=== PATIENT | female | born 1945 | race Caucasian/White ===

== ENCOUNTER 2019-02-13 19:10 | Emergency (ER) | payer MEDICARE, OTHER ==
[~2019-02-13] VITALS: Ht 165.1 cm; Wt 79.4 kg
[~2019-02-13 19:10] MED LIST: CEPHALEXIN500 MG PO; CITALOPRAM HBR40 MG PO; LEVOTHYROXINE125 MCG PO; PRAVASTATIN SOD10 MG PO; PREVACID15 MG PO
== END 2019-02-13 21:49 | disposition home or self-care (01) ==
LOC: ED 19:10
DX: S16.1XXA Strain of muscle, fascia and tendon at neck level, initial encounter (principal); S70.01XA Contusion of right hip, initial encounter; S50.311A Abrasion of right elbow, initial encounter; S80.211A Abrasion, right knee, initial encounter; E03.9 Hypothyroidism, unspecified; E78.00 Pure hypercholesterolemia, unspecified; F41.9 Anxiety disorder, unspecified; Z79.899 Other long term (current) drug therapy; Z23 Encounter for immunization; W01.0XXA Fall on same level from slipping, tripping and stumbling without subsequent striking against object, initial encounter
CPT/HCPCS: 73502; 90471; 90715; 99283-25

== ENCOUNTER 2020-05-28 06:55 | Day surgery (SDC) | payer MEDICARE, OTHER ==
[~2020-05-28] VITALS: Ht 165.1 cm; Wt 77.6 kg
--- NOTE | 2020-05-28 10:29 | NUR ---
05/28/20 1029 Meghana Gibbons 0927- PT TO PACU IN SUPINE POSITION. EYES CLOSED AND UNRESPONSIVE TO TACTILE OR VERBAL STIMULI. ORAL AIRWAY IN PLACE. CHIN THRUST REQUIRED TO PROMOTE EASE OF VENTILLATION. SPO2 >95% ON 6 L O2 VIA SIMPLE MASK. REPORT RECEIVED FROM JONELLE. 0937- PT CONTINUES TO REQUIRE CHIN THRUST TO PROMOTE EVEN AND EASY VENTILATIONS WITH ORAL AIRWAY IN PLACE. SPO2 >95% ON 6 L O2 VIA SIMPLE MASK. 0942- PT OPENS EYES TO VOICE AND TACTILE STIMULI. PROMPTING REQUIRED TO FOLLOW COMMANDS. ORAL AIRWAY REMOVED. BREATHING EASY AND UNLABORED SPOP2 >95% ON 6 L O2 VIA SIMPLE MASK. 0950- PT REQUESTING WATER. SIPS OF WATER PROVIDED. SPO2 >95%. O2 TITRATED DOWN TO ROOM AIR. 0952- SPO2 88-90%. O2 PROVIDED W/ ETCO2 MONITOR AT 2 LPM. SPO2 >90%. PT REPORTING NAUSEA. PRN MEDS AVAILABLE. 1000- PT COMPLAINING OF 6/10 PAIN. DESCRIBES THEM 'HUNGER PAINS' PT AGAIN REQUESTING WATER. PT EDUCATED ABOUT PO AND POST OPERATIVE NAUSEA. BREATHING EASY AND UNLABORED. SPO2 >90% ON 2 L O2 VIA NC. ETCO2 45. 1010- PT AGAIN REQUESTING WATER AND REPORTING RIGHT SHOULDER PAIN. WITH PROMPTING, PT ABLE TO MOVE BOTH EXTREMITIES. NEURO CHECK COMPLETED AND WNL. PT REMAINS VERY DROWSY AND REQUIRING FREQUENT REORINTATION. VSS. 1019- DS RN AT BEDSIDE TALKING WITH PT. PT REMAINS DROWSY AND COMPLAINS OF ABDOMINAL PAIN, 6/10. PT CLOSES EYES SHORTLY THERAFTER. VSS. 2 L O2 VIA NC RUNNING. 1028- PT SLEEPING COMFORTABLY. RR 10 ETCO2 48. WILL CONTINUE TO MONITOR PT IN PACU.
--- NOTE | 2020-05-28 11:11 | NUR ---
REPORTS DECREASING PAIN IN RIGHT SHOULDER (LIKELY FROM CO2 INSFLUATION) AND DECREASING ABDOMINAL PAIN. ICE TO INCISIONS PER ORDER. REPORTS NAUSEA IS RESOLVED. PROVIDED WITH CRACKERS AND SIPS OF WATER.
--- NOTE | 2020-05-28 12:09 | NUR ---
PT RESTING IN BED AND VSS. PT WAKES EASILY AND REPORT PAIN IS "MUCH BETTER" /10. PT SIPPING WATER AND EATING CRACKERS WITH NO CONCERNS. PT RESTING IN BED WITH EYES CLOSED AND CALLED LIGHT WITHIN REACH.
--- NOTE | 2020-05-28 13:15 | NUR ---
AMBULATES TO AT 1245 WITH ONE PERSON STAND BY ASSIST. UNMEASURED VOID. MEDICATED WITH ONE NORCO PER EMAR IN ANTICIPATION OF LOCAL ANESTHETIC WEARING OFF. DRESSINGS REMAIN CDI. PT COUGHS THICH SPUTUM WHILE BRACING ABD. REVIEWED DISCHARGE INSTRUCTIONS WITH PT AT BEDSIDE. RX AND DISCHARGE INSTRUCTIONS GIVEN TO FAMILY AT FRONT OF HOSPITAL.
--- NOTE | 2020-05-31 11:39 | PATH ---
[facility] [address] [facility], [place] [address] Signed SPECIMEN(S): A GALLBLADDER SPECIMEN SOURCE: A. GALLBLADDER CLINICAL HISTORY: Cholecystitis, biliary colic. FINAL PATHOLOGIC DIAGNOSIS: Gallbladder, cholecystectomy: - Mild chronic cholecystitis. NAL:vlg:C2NR MICROSCOPIC EXAMINATION: Histologic sections of all submitted blocks are examined by light microscopy. These findings, together with the gross examination, support the pathologic diagnosis. GROSS DESCRIPTION: The specimen, labeled "STEPHEN, gallbladder," is received in formalin and consists of Specimen: Previously incised gallbladder. Dimensions: Upon reconstruction, 7.5 x 2.3 x 1.8 cm. Serosa: [place]-white, smooth, glistening. Cystic Duct: Patent, 0.4 cm in diameter, and the margin is blue. Calculi: Absent within specimen and specimen container. Mucosa: [place]-red, velvety, glistening. Wall thickness: 0.2-0.3 cm. Lymph node: No pericystic lymph nodes are grossly identified. Additional: None. Access Director sections are submitted in cassette (A1). AI (under the direct supervision of a pathologist) The Gross Description was prepared using a voice recognition system. The report was reviewed for accuracy; however, sound-alike word errors, addition and/or deletions may occur. If there is any question about this report, please contact Client Services. PERFORMING LABORATORY: The technical component was performed by [facility], [address] [place] [id number] (Photograph Editor: Amanda Echevarria MD; CLIA# [id number]). Professional interpretation was performed by PATIENT NAME: LUIS ALFREDO CROSS PATHOLOGY DATE OF : 49 REPORT #: [id number] PHYSICIAN: [facility] PATHOLOG[facility] PCP: FRANCESCA VÁZQUEZ PA-C REPORT IS CONFIDENTIAL AND NOT TO BE RELEASED WITHOUT AUTHORIZATION [facility] [address] [place], [place] [address] Signed [facility], [facility], [address] [address] (CLIA# [id number]). Diagnostician: Madison Mclean MD Pathologist Electronically Signed 05/31/2020 Copies: ~ PATIENT NAME: LUIS ALFREDO CROSS PATHOLOGY DATE OF : 49 REPORT #: [id number] PHYSICIAN: TALITA PATHOLOGY PCP: FRANCESCA VÁZQUEZ PA-C REPORT IS CONFIDENTIAL AND NOT TO BE RELEASED WITHOUT AUTHORIZATION
--- NOTE | 2020-06-01 07:34 | OR ---
[facility] [address] [place], [place] [address] Signed DATE OF OPERATION: 05/28/2020 SURGEON: Abelino Fleming MD PREOPERATIVE DIAGNOSIS: Chronic cholecystitis. POSTOPERATIVE DIAGNOSES: 1. Chronic cholecystitis. 2. Cholesterolosis. PROCEDURE: Laparoscopic cholecystectomy with intraoperative cholangiogram. ESTIMATED BLOOD LOSS: None. FINDINGS: The intraoperative cholangiogram was unremarkable. Luis Alfredo had significant cholesterolosis. INDICATIONS: Luis Alfredo is a 74-year-old female, who came to the office with her daughter. She said as far back as 1995, she has been having trouble with right upper quadrant abdominal pain. She states it is becoming more constant and more frequent with her attacks. She stated it has been quite severe. It radiates through to her back particularly with greasy foods. Her primary care provider had ordered ultrasound and that was unremarkable. The HIDA scan showed her gallbladder to be hyperkinetic with an ejection fraction of 90%. Injection of the CCK reproduced her symptoms and made her quite miserable. In the office, I had given Luis Alfredo and her daughter a brochure on the gallbladder. We looked through a page by page. They understand the location and function of the gallbladder. We reviewed the expected intraop and postop course. We reviewed the risks including, but not limited to bleeding, infection, scarring, change in contour of the skin, damage to bowel, damage to main bile duct, incisional hernias and other unforeseen comorbidities. She had expressed understanding and wished to proceed with her gallbladder surgery. DESCRIPTION OF PROCEDURE: I met with Luis Alfredo in the preop area. After this, she was taken in the operating room and placed in the supine position under general endotracheal tube anesthesia. She was given Electronically Signed By: ABELINO FLEMING MD 06/01/20 0734 PATIENT NAME: LUIS ALFREDO CROSS OPERATIVE REPORT DATE OF : 49 REPORT #: [id number] PHYSICIAN: ABELINO FLEMING MD PCP: FRANCESCA VÁZQUEZ PA-C REPORT IS CONFIDENTIAL AND NOT TO BE RELEASED WITHOUT AUTHORIZATION [facility] [address] [place], [place] [address] Signed preoperative antibiotics along with subcutaneous heparin. SCDs were utilized. She was then prepped and draped in the usual sterile fashion. All trocars were placed in usual positions under direct visualization of camera without difficulty. Her gallbladder was grasped and elevated in the right upper quadrant. Pictures were taken throughout for photodocumentation. The findings were as above. The triangle of Calot was dissected free and a clip had been placed across the cystic artery and it had been divided. The intraoperative cholangiocatheter was inserted into the cystic duct. The intraoperative cholangiogram was then performed. This was unremarkable. The cystic duct stump was secured with a PDS endoloop. Two clips were placed across the cystic duct stump to noemy its location. The gallbladder was then slowly removed from the gallbladder fossa with the help of the cautery and placed into an EndoCatch bag. The right upper quadrant was irrigated and suctioned out until clear. We used our laparoscopic suturing device to pass 0 Vicryl suture on either side of the fascia of the subxiphoid trocar site. This was tied down to close this fascia primarily. After this, all the gas was allowed to escape and all the trocars were removed along with the gallbladder. The gallbladder was opened on the back table by our circulating nurse. Pictures were taken for photodocumentation. It is clear she has significant cholesterolosis. The fascia of the supraumbilical trocar site was closed with interrupted simple and [id number] 0 Vicryl sutures. Local anesthetic was injected into all trocar sites. Each trocar site was irrigated and suctioned out until clear. The skin and dermis of each trocar site were closed with interrupted 3-0 subcuticular Monocryl sutures. Dry gauze and tape were applied to all incisions. Luis Alfredo was awakened from her anesthesia, extubated in the OR, and taken to the recovery room in stable condition. Abelino Fleming MD ALB/MODL /[id number] cc: MD Francesca Gupta Copies: ABELINO FLEMING MD Electronically Signed By: ABELINO FLEMING MD 06/01/20 0734 PATIENT NAME: LUIS ALFREDO CROSS OPERATIVE REPORT DATE OF : 49 REPORT #: [id number] PHYSICIAN: ABELINO FLEMING MD PCP: FRANCESCA VÁZQUEZ PA-C REPORT IS CONFIDENTIAL AND NOT TO BE RELEASED WITHOUT AUTHORIZATION [address] [address] Signed ~ Electronically Signed By: ABELINO FLEMING MD 06/01/20 0734 PATIENT NAME: LUIS ALFREDO CROSS ANN OPERATIVE REPORT DATE OF : 49 REPORT #: [id number] PHYSICIAN: ABELINO FLEMING MD PCP: FRANCESCA VÁZQUEZ PA-C REPORT IS CONFIDENTIAL AND NOT TO BE RELEASED WITHOUT AUTHORIZATION
== END 2020-05-28 13:05 | disposition home or self-care (01) ==
LOC: DS 06:55
PROVIDERS: ATTEND Colon & Rectal Surgery
PROC: BF13YZZ Fluoroscopy of Gallbladder and Bile Ducts using Other Contrast (ICD-10-PCS; 2020-05-28)
PROC: 0FT44ZZ Resection of Gallbladder, Percutaneous Endoscopic Approach (ICD-10-PCS; principal; 2020-05-28 07:30)
DX: K81.1 Chronic cholecystitis (principal); K21.9 Gastro-esophageal reflux disease without esophagitis; E03.9 Hypothyroidism, unspecified; F41.9 Anxiety disorder, unspecified; F32.9 Major depressive disorder, single episode, unspecified; Z79.899 Other long term (current) drug therapy
CPT/HCPCS: 00790; 74300; J0131; J0690; J1100; J1644; J1885; J2001; J2405; J2704; J3010; J7121; Q9967

== ENCOUNTER 2020-11-14 22:55 | Emergency (ER) | payer MEDICARE, OTHER ==
[~2020-11-14] VITALS: Ht 165.1 cm; Wt 70.3 kg
[2020-11-14] MEDS ORDERED: HYDROCODON-ACE1 EA10 PO (23:43)
== END 2020-11-14 23:50 | disposition home or self-care (01) ==
LOC: ED 22:55
DX: S93.402A Sprain of unspecified ligament of left ankle, initial encounter (principal); X50.9XXA Other and unspecified overexertion or strenuous movements or postures, initial encounter; E03.9 Hypothyroidism, unspecified; E78.00 Pure hypercholesterolemia, unspecified; F41.9 Anxiety disorder, unspecified; G43.909 Migraine, unspecified, not intractable, without status migrainosus; Z79.899 Other long term (current) drug therapy
CPT/HCPCS: 73610; 73630; 99283-25